=== PATIENT | female | born 1990 | race Caucasian/White ===

== ENCOUNTER 2025-08-12 00:40 | Emergency (ER) | payer MEDICAID, SELFPAY ==
[2025-08-12 00:44] VITALS: BP 141/82; PULSE 115; RESP 18; TEMP 37.5; O2SAT 99
--- NOTE | 2025-08-12 04:58 | ED.ANXIETY ---
HPI - Anxiety General Chief Complaint: Anxiety Stated Complaint: anxiety, paranoia Time Seen by Provider: 08/12/25 04:49 History of Present Illness HPI narrative: Patient called EMS because she was feeling very anxious. She is prescribed clonazepam but she would actually like to get Xanax and sometimes she will get Xanax on the street. She is also supposed to be on Suboxone but her brother took her Suboxone. Related Data Allergies Allergy/AdvReac Type Severity Reaction Status Date / Time No Known Allergies Allergy Verified 08/12/25 04:46 Course Vital Signs Vital signs: Vital Signs Temperature 99.5 F 08/12/25 00:44 Pulse Rate 115 H 08/12/25 00:44 Respiratory Rate 18 08/12/25 00:44 Blood Pressure 141/82 H 08/12/25 00:44 Pulse Oximetry 99 08/12/25 00:44 Oxygen Delivery Room Air 08/12/25 00:44 Temperature 99.5 F 08/12/25 00:44 Pulse Rate 115 H 08/12/25 00:44 Respiratory Rate 18 08/12/25 00:44 Blood Pressure 141/82 H 08/12/25 00:44 Pulse Oximetry 99 08/12/25 00:44 Oxygen Delivery Room Air 08/12/25 00:44 MDM - Anxiety MDM Narrative Medical decision making narrative: Patient called EMS because she was feeling very anxious. She is prescribed clonazepam but she would actually like to get Xanax and sometimes she will get Xanax on the street. She is also supposed to be on Suboxone but her brother took her Suboxone. She does appear anxious here, I did consider possible withdrawal, however she does not have any tremors or tongue wag currently, her blood pressure is normal, she also is holding a full bottle of clonazepam so I doubt she will go into withdrawal at this time. I did offer further evaluation and treatment, patient declines this, states that she does not like needles and does not trust this hospital, she would just like to get some medications go. She is asked to come back into her room but she does not want to. She is currently alert and oriented x4, she is denying suicidal homicidal ideations, she is otherwise answering questions appropriately and I do not think she is acutely psychotic to the point where I can hold her against her will. At this point in time I will give her her subutex to help prevent withdrawal, a small dose of Ativan and Zyprexa for calming, and I did let her know if she changes her mind she can always return to the emergency room. Patient agreeable to plan. Requesting discharge at this time. Discharge Plan Discharge Clinical Impression: Acute anxiety Patient Disposition: Home Condition: Stable Instructions: Anxiety (ED) Additional Instructions: Please follow up with your doctor; you can always return for any further issues or if you change your mind about seeking treatment and further evaluation. Patient Language: Telugu Follow-up/Referrals: PHYSICIAN,[employer] [Primary Care Provider, Internal Medicine]
[2025-08-12] MEDS: OLANZapine ODT DISPERTAB 5 MG PO (05:35)
[2025-08-12] MEDS: BUPRENORPHINE HCL (*CRX) 8 MG SUBLINGUAL TABLET SUBLINGUAL (05:36)
--- OUTSIDE RECORDS SUMMARY | 2025-08-12 05:37 | XMS_ITS | Clinical Summary ---
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 [phone] * SYPHILIS ANTIBODY CASCADING REFLEX (06/14/2025 9:35 AM CDT) Treponema pallidum Antibody Non-react genie Non-react genie 06/14/2025 11:01 AM CDT [facility] Comment: No Laboratory evidence of syphilis infection. Note: Circulating antibodies may be low or undetectable in early infection. If recent exposure is suspected, re-draw sample in 2-4 weeks and repeat testing. Blood BLOOD SPECIMEN / Unknown Venipuncture / Unknown 06/14/2025 9:35 AM CDT 06/14/2025 9:48 AM CDT us Judy Harris MD LAB - SEROLOGY ORDERABLES Final Result Performing Organization Address [facility]/ZIP Co de Phone Number [address] [address], [place] [phone] * HIV-1 HIV-2 ANTIBODY + HIV P24 AG PANEL (06/14/2025 9:35 AM CDT) HIV Antigen/Antibod y 1 & 2 Non-reacti ve Non-react genie 06/14/2025 11:01 AM CDT [facility] Comment:No Laboratory eviden ce of HIV infection. Blood BLOOD SPECIMEN / Unknown Venipuncture / Unknown 06/14/2025 9:35 AM CDT 06/14/2025 9:48 AM CDT us Judy Harris MD LAB - CHEMISTRY ORDERABLES Final Result Performing Organization Address City/[facility]/ZIP Co de Phone Number [address] [address], [place] [phone] * HCG BETA BLOOD QUANTITATIVE (06/14/2025 9:35 AM CDT) Only the most recent of2 resultswithin the time period is included. Beta-hCG Total Quantitative <3 mIU/mL 06/14/2025 11:07 AM CDT [facility] Comment: HCG Numeric Result Interpretation: Non- Females: < 5 mIU/mL Post-Menopausal Females: < 7 mIU/mL This assay is cleared for use in the early detection of only. It is not approved for any other uses such as tumor marker screening, tumor marker monitoring, etc. and should not be used for any other purposes. Blood BLOOD SPECIMEN / Unknown Venipuncture / Unknown 06/14/2025 9:35 AM CDT 06/14/2025 10:11 AM CDT us Poornima Alarcon MD LAB - CHEMISTRY ORDERABLES Fin al Result [address] [address], [facility] [phone] * (ABNORMAL) URINALYSIS REFLEX TO MICROSCOPIC NO CULTURE (06/13/2025 3:50 AM CDT) Pathologist [facility] Color UA Yellow Yellow, Straw 06/13/2025 4:25 AM CDT [facility] Clarity UA Turbid(A) Clear 06/13/2025 4:25 AM CDT [facility] Glucose UA Normal Normal 06/13/2025 4:25 AM CDT [facility] Bilirubin UA Negative Negative 06/13/2025 4:25 AM CDT [facility] Ketone UA Trace(A) Negative 06/13/2025 4:25 AM CDT [facility] Specific [place] UA 1.030 1.005 - 1.030 06/13/2025 4:25 AM CDT [facility] Blood UA 2+(A) Negative 06/13/2025 4:25 AM CDT [facility] pH UA 6.0 5.0 - 8.0 06/13/2025 4:25 AM CDT [facility] Protein UA 1+(A) Negative 06/13/2025 4:25 AM CDT [facility] Urobilinogen UA 2.0(A) Normal mg/dL 06/13/2025 4:25 AM CDT [facility] Nitrite UA Positive(A) Negative 06/13/2025 4:25 AM CDT [facility] Leukocyte Esterase UA 500 JASWINDER/uL(A) Negative 06/13/2025 4:25 AM CDT [facility] RBC UA 6-10(A) 0 - 5 # /hpf 06/13/2025 4:25 AM CDT [facility] WBC UA 51-100(A) 0 - 5 # /hpf 06/13/2025 4:25 AM CDT [facility] Bacteria UA 2+(A) None Seen 06/13/2025 4:25 AM CDT [facility] Squamous Epithelial Cells 0-2 0 - 5 /hpf 06/13/2025 4:25 AM CDT [facility] Mucus UA 3+ /LPF 06/13/2025 4:25 AM CDT [facility] Urine URINE SPECIMEN OBTAINED BY CLEAN CATCH PROCEDURE / Unknown Collection / Unknown 06/13/2025 3:50 AM CDT 06/13/2025 4:14 AM CDT Narrative [facility] - 06/13/2025 4:25 AM CDT us Luis Alberto Esqueda MD LAB - URINALYSIS ORDERABLES Tyra l Result Performing Organization Address [facility] Co de Phone Number [facility] [address] [place] [address] * GLUCOSE - POINT OF CARE (06/13/2025 2:48 AM CDT) Glucose WB/POC 99 70 - 99 mg/dL 06/13/2025 2:53 AM CDT [facility] Specimen Type Arterial/C apillary 06/13/2025 2:53 AM CDT [facility] Blood BLOOD SPECIMEN / Unknown 06/13/2025 2:48 AM CDT 06/13/2025 2:53 AM CDT us Provider Unknown LAB - POINT OF CARE ORDERABLES Final Result Performing Organization Address [facility] Co de Phone Number [facility] [address] [place] [address] * (ABNORMAL) URINALYSIS W/MICROSCOPIC NO CULTURE (06/09/2025 9:04 AM T) Color UA Yellow Yellow, Straw 06/09/2025 9:30 AM [facility] Clarity UA Clear Clear 06/09/2025 9:30 AM [facility] Glucose UA Normal Normal 06/09/2025 9:30 AM [facility] Bilirubin UA Negative Negative 06/09/2025 9:30 AM [facility] Ketone UA Negative Negative 06/09/2025 9:30 AM [facility] Specific [place] UA 1.035(H) 1.005 - 1.030 06/09/2025 9:30 AM [facility] Blood UA 2+(A) Negative 06/09/2025 9:30 AM [facility] pH UA 5.5 5.0 - 8.0 06/09/2025 9:30 AM [facility] Protein UA 1+(A) Negative 06/09/2025 9:30 AM [facility] Urobilinogen UA Normal Normal mg/dL 06/09/2025 9:30 AM [facility] Nitrite UA Negative Negative 06/09/2025 9:30 AM [facility] Leukocyte Esterase UA 250 JASWINDER/uL(A) Negative 06/09/2025 9:30 AM [facility] RBC UA 3-5 0 - 5 # /hpf 06/09/2025 9:30 AM [facility] WBC UA 11-20(A) 0 - 5 # /hpf 06/09/2025 9:30 AM [facility] Bacteria UA None Seen None Seen 06/09/2025 9:30 AM [facility] Squamous Epithelial Cells 3-5 0 - 5 /hpf 06/09/2025 9:30 AM [facility] Mucus UA 1+ /LPF 06/09/2025 9:30 AM [facility] Hyaline Casts 3-5(A) 0 - 2 /LPF 06/09/2025 9:30 AM [facility] Urine URINE SPECIMEN OBTAINED BY CLEAN CATCH PROCEDURE / Unknown Collection / Unknown 06/09/2025 9:04 AM CDT 06/09/2025 9:12 AM CDT us Ld Salas DO LAB - URINALYSIS ORDERABLES Final Result [address] [address], [facility] [phone] * CARDIAC EKG ORDER (05/24/2025 6:29 PM CDT) Narrative 05/24/2025 6:29 PM CDT Ordered by an unspecified provider. us Scanned Document CARDIAC SERVICES ORDERABLES Fin al Result * (ABNORMAL) URINALYSIS REFLEX MICROSCOPIC REFLEX CULTURE (05/24/2025 12:55 AM CDT) Color UA Yellow Yellow, Straw 05/24/2025 1:18 AM [facility] Clarity UA Clear Clear 05/24/2025 1:18 AM [facility] Glucose UA Trace(A) Normal 05/24/2025 1:18 AM [facility] Bilirubin UA Negative Negative 05/24/2025 1:18 AM [facility] Ketone UA 2+(A) Negative 05/24/2025 1:18 AM [facility] Specific [place] UA 1.035(H) 1.005 - 1.030 05/24/2025 1:18 AM [facility] Blood UA Negative Negative 05/24/2025 1:18 AM [facility] pH UA 6.0 5.0 - 8.0 05/24/2025 1:18 AM [facility] Protein UA 1+(A) Negative 05/24/2025 1:18 AM [facility] Urobilinogen UA 4.0(A) Normal mg/dL 05/24/2025 1:18 AM [facility] Nitrite UA Negative Negative 05/24/2025 1:18 AM [facility] Leukocyte Esterase UA Negative Negative 05/24/2025 1:18 AM [facility] RBC UA 3-5 0 - 5 # /hpf 05/24/2025 1:18 AM CDT [facility] WBC UA 11-20(A) 0 - 5 # /hpf 05/24/2025 1:18 AM CDT [facility] Bacteria UA Trace(A) None Seen 05/24/2025 1:18 AM CDT [facility] Squamous Epithelial Cells 3-5 0 - 5 /hpf 05/24/2025 1:18 AM CDT [facility] Mucus UA 4+ /LPF 05/24/2025 1:18 AM CDT [facility] Reflex Status Culture not indicated 05/24/2025 1:18 AM CDT [facility] Urine URINE SPECIMEN OBTAINED BY CLEAN CATCH PROCEDURE / Unknown Collection / Unknown 05/24/2025 12:55 AM CDT 05/24/2025 1:00 AM CDT Niraj Manley MD LAB - URINALYSIS ORDERABLES Final Result Performing Organization Address City/[facility]/ZIP Co de Phone Number [facility] [address] [place] [address] * CULTURE URINE (05/24/2025 12:55 AM CDT) Culture Urine More than 2 organisms seen at >=50,000 CFU/mL. Recollect if clinically indicated. ZOË 05/25/2025 2:[address] [facility] Urine URINE SPECIMEN OBTAINED BY CLEAN CATCH PROCEDURE / Unknown Collection / Unknown 05/24/2025 12:55 AM CDT 05/24/2025 1:00 AM CDT Niraj Manley MD LAB - MICROBIOLOGY ORDERABLE S Final Result [facility] [address] [place] [address], [facility] [phone] * TROPONIN-I HIGH SENSITIVE BASELINE + 1HR (05/24/2025 12:51 AM CDT) Troponin I High Sensitive <3 <=14 ng/L 05/24/2025 1:26 AM CDT [facility] Blood BLOOD SPECIMEN / Unknown Venipuncture / Unknown 05/24/2025 12:51 AM CDT 05/24/2025 1:00 AM CDT Niraj Manley MD LAB - CHEMISTRY ORDERABLES F inal Result Performing Organization Address [facility] Co de Phone Number [facility] [address] [place] [address] * (ABNORMAL) D-DIMER (05/24/2025 12:51 AM CDT) D-Dimer <0.27(L) 0.27 - 0.50 ug/mL FEU 05/24/2025 1:17 AM CDT [facility] Blood BLOOD SPECIMEN / Unknown Venipuncture / Unknown 05/24/2025 12:51 AM CDT 05/24/2025 1:00 AM CDT Narrative [facility] - 05/24/2025 1:17 AM CDT In the absence of clinical symptoms, a value less than or equal to 0.5 mcg/mL FEU significantly decreases the probability of PE/DVT (negative predictive value >95%). 1 mcg/ml FEU = 1 Fibrinogen Equivalent Unit (approximates 0.5 mcg/mL of D- dimer). Niraj Manley MD LAB - COAGULATION ORDERABLES Final Result Performing Organization Address [facility] de Phone Number [facility] [address] [place] [address] * (ABNORMAL) PT-INR (05/24/2025 12:51 AM CDT) Pathologist [facility] PT 14.7 12.1 - 14.8 sec 05/24/2025 1:44 AM CDT [facility] INR 1.2(H) 0.9 - 1.1 05/24/2025 1:44 AM CDT [facility] Blood BLOOD SPECIMEN / Unknown Venipuncture / Unknown 05/24/2025 12:51 AM CDT 05/24/2025 1:00 AM CDT Narrative [facility] - 05/24/2025 1:44 AM CDT Conventional Warfarin Anticoagulant Therapy: INR Reference Range: 2.0-3.0 Intensive Warfarin Anticoagulant Therapy: INR Reference Range: 2.5-3.5 Niraj Manley MD LAB - COAGULATION ORDERABLES Final Result [facility] [address] [place] [address] * EKG 12-LEAD (05/23/2025 11:46 PM CDT) Ventricular Rate 103 BPM [facility] Atrial Rate 103 BPM [facility] P-R Interval 126 ms [facility] QRS Duration ms 78 ms [facility] Q-T Interval ms 320 ms [facility] QTC Calculation (Bezet) 419 ms [facility] Calculated P [place] 32 degrees [facility] Calculated R [place] 75 degrees [facility] Calculated T [place] -70 degrees [facility] Interpretation EKG Sinus tachycardia T wave abnormality, consider inferior ischemia T wave abnormality, consider anterolateral ischemia Abnormal ECG Confirmed by IRMA CLEMONS MD ([id number]) on 05/24/2025 12:13:47 PM [facility] 05/23/2025 11:4 6 PM CDT 05/24/2025 12:13 PM CDT Niraj Manley MD ECG ORDERABLES Edited Resul t - Final Performing Organization Address [facility] Co de Phone Number [facility] from Last 3 Months Additional Health Concerns Infection Onset Date Last 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 03/03/2023 [place] Advance Directives * Full Code (Latest Code Status on File) Date Activated Date Inactivated Comments 08/02/2025 4:39 PM 08/08/2025 1:42 PM * Full Code Date Activated Date Inactivated Comments 10/05/2024 4:10 PM 10/07/2024 2:44 PM * Full Code Date Activated Date Inactivated Comments 12/12/2019 10:02 PM 12/19/2019 4:13 PM * Full Code Date Activated Date Inactivated Comments 07/27/2019 9:44 PM 07/30/2019 12:13 PM Care Teams Gasfitter Relationship Specialty Start Date End Date None, Physician [id number] [place] [address] PCP - General 04/24/25 Given, None 06/07/23
[2025-08-12] MEDS: LORazepam (*CRX) 0.5 MG TABLET PO (05:46)
== END 2025-08-12 06:00 | disposition home or self-care (01) ==
LOC: ANHED 05:34
PROVIDERS: Emergency Provider Emergency Medicine
DX: F41.9 Anxiety disorder, unspecified (principal)
CPT/HCPCS: 99283; A9270; J0571